=== PATIENT | female | born 1975 | race Two or more races ===

== ENCOUNTER 2020-09-12 01:08 | Emergency (ER) | payer MEDICAID, OTHER ==
[~2020-09-12] VITALS: Ht 157.5 cm; Wt 63.5 kg
[2020-09-12 04:02] LABS: Amphetamine Screen, Urine NEGATIVE (NEGATIVE); Barbiturate Scree,Urine NEGATIVE (NEGATIVE); Benzodiazephine Screen, Urine NEGATIVE (NEGATIVE); Cannabinoid Screen, Urine NEGATIVE (NEGATIVE); Cocaine Screen, Urine NEGATIVE (NEGATIVE); Opiate Scree,Urine NEGATIVE (NEGATIVE); Phencyclidine Screen, Urine NEGATIVE (NEGATIVE)
[2020-09-12] MEDS ORDERED: ACETAMINOPHEN 325 MG TAB PO ONE (06:00)
[2020-09-12] MEDS ORDERED: FAMOTIDINE 20 MG TAB PO ONE (07:15)
[2020-09-12] MEDS ORDERED: LIDOCAINE VISCOUS 2% 15ML UD PO ONE (07:15)
[2020-09-12] MEDS ORDERED: SUCRALFATE 1 GM/10 ML ORAL SUSP PO ONE (07:15)
[2020-09-12 09:18] LABS: Basophils # (auto) 0 10 ^3/uL (0-0.2); Basophils % (auto) 0.5 % (0.0-2.0); Eosinophils # (auto) 0 10 ^3/uL (0-0.8); Eosinophils % (auto) 0.3 % (0.0-7.0); Hematocrit 42.4 % (36.0-46.0); Hemoglobin 14.8 g/dL (12.2-16.2); Lymphocytes # (auto) 3.2 10 ^3/uL (0.4-5.4); Lymphocytes % (auto) 39.3 % (10.0-50.0); Mean Corpuscular Hemoglobin 32.4 pg (28.0-32.0); Mean Corpuscular Hgb Conc. 34.8 g/dL (32.0-36.0); Mean Corpuscular Volume 93.1 fL (80.0-100.0); Monocytes # (auto) 0.6 10 ^3/uL (0-1.3); Monocytes % (auto) 7.7 % (0.0-12.0); Neutrophils # (auto) 4.3 10 ^3/uL (1.6-8.6); Neutrophils % (auto) 52.2 % (37.0-80.0); Nucleated Red Blood Cells % 0.1 %; Red Blood Cells 4.56 10^6/uL (4.0-5.20); Red Cell Distribution Width 12.7 % (11.8-14.3); White Blood Cell 8.2 10^3/uL (4.4-10.8)
[2020-09-12 09:24] LABS: Albumin 3.6 g/dL (3.4-5.0); BUN/Creatinine Ratio 13.9; Calcium 8.2 mg/dL (8.5-10.1)
[2020-09-12 09:27] LABS: Bilirubin, Total 0.3 mg/dL (0.2-1.0); Total Protein 7.4 g/dL (6.4-8.2)
[2020-09-12 09:37] LABS: Potassium 3.8 mmol/L (3.5-5.1)
[2020-09-12] MEDS ORDERED: InsuLIN REG 1unit/0.01ml Soln (100units/ml) SC ONE (10:45)
[2020-09-12 12:24] LABS: BUN/Creatinine Ratio 16.2; Calcium 8.3 mg/dL (8.5-10.1)
[2020-09-12 12:33] LABS: Potassium 4.1 mmol/L (3.5-5.1)
[2020-09-12 12:51] VITALS: BP 127/89
== END 2020-09-12 14:40 | disposition home or self-care (01) ==
LOC: EDBD 01:08 → ER 01:12
DX: S00.03XA Contusion of scalp, initial encounter (principal); E11.9 Type 2 diabetes mellitus without complications; K21.9 Gastro-esophageal reflux disease without esophagitis; E78.5 Hyperlipidemia, unspecified; W03.XXXA Other fall on same level due to collision with another person, initial encounter; Y93.89 Activity, other specified; Y92.89 Other specified places as the place of occurrence of the external cause; Y99.8 Other external cause status
CPT/HCPCS: 36415; 70450; 72125; 80048; 80053; 80307; 80320; 81025; 82962; 85025; 93005; 96372

== ENCOUNTER 2023-02-17 18:19 | Emergency (ER) | payer MEDICAID ==
[~2023-02-17] VITALS: Ht 157.5 cm; Wt 61.0 kg
[2023-02-17] MEDS ORDERED: CYCL-839 PO (22:40)
[2023-02-17] MEDS ORDERED: IBUP1TAB5 PO (22:40)
[2023-02-17] MEDS ORDERED: HYDROcodone-ACET 5/325MG TAB PO ONE (23:15)
[2023-02-18 04:22] VITALS: BP 116/63; PULSE 84; RESP 18; TEMP 98.3; O2SAT 98
== END 2023-02-18 03:30 | disposition home or self-care (01) ==
LOC: ER 18:19
DX: S13.9XXA Sprain of joints and ligaments of unspecified parts of neck, initial encounter (principal); S33.5XXA Sprain of ligaments of lumbar spine, initial encounter; E11.9 Type 2 diabetes mellitus without complications; E78.5 Hyperlipidemia, unspecified; K21.9 Gastro-esophageal reflux disease without esophagitis; I10 Essential (primary) hypertension; V89.2XXA Person injured in unspecified motor-vehicle accident, traffic, initial encounter; Y93.89 Activity, other specified; Y92.89 Other specified places as the place of occurrence of the external cause; Y99.8 Other external cause status
CPT/HCPCS: 72040; 72100

== ENCOUNTER 2023-07-12 18:36 | Emergency (ER) | payer MEDICAID, OTHER ==
[~2023-07-12] VITALS: Ht 157.5 cm; Wt 62.4 kg
[~2023-07-12 18:36] MED LIST: CYCL-839 PO; IBUP1TAB5 PO
[2023-07-12 18:53] VITALS: BP 119/77; PULSE 69; TEMP 98.1
[2023-07-12 18:58] VITALS: RESP 17; O2SAT 96
[2023-07-12 21:45] LABS: Rapid Influenza A Negative (Negative); Rapid Influenza B Negative (Negative); Rapid Strep A Screen-Throat Negative
[2023-07-12 21:49] LABS: COVID19 ANTIGEN SOFIA FIA POSITIVE (NEGATIVE)
[2023-07-12] MEDS ORDERED: NIRM1TAB PO (22:40)
== END 2023-07-12 22:43 | disposition home or self-care (01) ==
LOC: ER 18:36
DX: U07.1 COVID-19 (principal); I10 Essential (primary) hypertension; E11.9 Type 2 diabetes mellitus without complications; K21.9 Gastro-esophageal reflux disease without esophagitis; E78.5 Hyperlipidemia, unspecified
CPT/HCPCS: 36415; 87070; 87426; 87804; 87880